=== PATIENT | male | born 1985 | race Caucasian/White ===

== ENCOUNTER 2017-10-01 17:45 | Emergency (ER) | payer SELFPAY ==
[2017-10-01] MEDS: LORAZEPAM 2 MG INJ IM ×2 (19:01→19:32)
[2017-10-01] MEDS ORDERED: HALOPERIDOL 5 MG INJ (19:34)
[2017-10-01] MEDS: HALOPERIDOL 5 MG INJ IM (19:52)
== END 2017-10-02 06:20 | disposition home or self-care (01) ==
LOC: E/R 17:45
DX: F10.120 Alcohol abuse with intoxication, uncomplicated (principal); R45.1 Restlessness and agitation; R41.82 Altered mental status, unspecified
CPT/HCPCS: 36415; 70450; 80306; 82962; 96372; 99285-25